=== PATIENT | male | born 1945 | race Caucasian/White ===

== ENCOUNTER 2016-10-12 21:25 | Inpatient (IN) ==
[2016-10-13] MEDS ORDERED: Albuterol 2.5 MG/3 ML NEBULIZER IH PRN (04:39)
[2016-10-13] MEDS ORDERED: *HR* Enoxaparin 80 MG/0.8 ML SYRINGE SQ SCH (05:00)
[2016-10-13] MEDS: Ipratropium/Albuterol Neb 3 ML IH SCH ×4 (05:25→22:43)
[2016-10-13] MEDS ORDERED: Naloxone 0.4 MG/ML INJ IVP PRN (05:28)
[2016-10-13] MEDS ORDERED: Acetaminophen 325 MG TABLET PO PRN (05:28)
[2016-10-13] MEDS ORDERED: *HR* Morphine 2 MG/ML SYRINGE IVP PRN (05:55)
[2016-10-13 06:19] LABS: Basophils % 0.1 %; Hematocrit 37.9 % (37.5-50.1); Hemoglobin 12.8 g/dL (12.9-16.9); Immature Granulocytes % 0.6 % (0-4); Lymphocytes # 0.7 K/mcL (0.6-4.6); Lymphocytes % 4.4 %; Mean Corpuscular HGB Conc 33.8 g/dL (31.6-35.5); Mean Corpuscular Hemoglobin 30.5 pg (28.0-33.3); Mean Corpuscular Volume 90.2 fL (83.0-100.0); Mean Platelet Volume 10.9 fL (9.4-12.4); Monocytes % 6.4 %; Platelet Count 206 K/mcL (140-400); Red Cell Distribution Width 13.7 % (11.5-14.5); Segmented Neutrophils % 88.5 %
[2016-10-13 06:35] LABS: BUN/Creatinine Ratio 28 (6-26); Blood Urea Nitrogen 23 mg/dL (8-26); Calcium 9.4 mg/dL (8.6-10.8); Carbon Dioxide 26 mEq/L (19-29); Chloride 105 mEq/L (98-109); Glucose 108 mg/dL (70-99); Osmolality,Calculated 294 (280-300); Sodium 140 mEq/L (136-145); eGFR For African Americans > 60 (> 60); eGFR For Non-African Americans > 60 (> 60)
[2016-10-13 06:36] LABS: Chol/HDL Ratio 3.4 (0-4.9)
[2016-10-13] MEDS: Aspirin 81 MG TAB.CHEW PO SCH (08:37)
[2016-10-13] MEDS: GuaiFENesin Liq 200 MG/10 ML UDC PO SCH ×2 (08:37→20:22)
[2016-10-13] MEDS ORDERED: Budesonide/Formoterol 160/4.5 MDI IH SCH (10:00)
--- NOTE | 2016-10-13 11:25 | Internal Med History&Physical ---
Date of Encounter: 10/13/16 Time of Encounter: 01:35 Assessment and Plan (1) Elevated troponin Status: Acute (2) Chest pain Status: Acute Atypical chest pain in the setting of reportedly elevated troponin will suggest NSTEMI. Trend troponin, serial EKG, 2D ECHO to evaluate LVEF and wma. Will need [facility] Consult cardiology. Loading dose of Lovenox. SL NG and IV Morphine prn for pain. Evaluate for cardiovascular risk factors. Continue other medications for chronic morbidities. Qualifiers: Chest pain type: unspecified Qualified Code(s): R07.9 - Chest pain, unspecified (3) HLD (hyperlipidemia) Status: Chronic Qualifiers: Hyperlipidemia type: unspecified Qualified Code(s): E78.5 - Hyperlipidemia , unspecified (4) CAD (coronary artery disease) Status: Chronic Qualifiers: Coronary Disease-Associated Artery/Lesion type: [place] artery Associated angina: with unspecified angina Qualified Code(s): I25.119 - Atherosclerotic heart disease of [place] coronary artery with unspecified angina pectoris (5) COPD (chronic obstructive pulmonary disease) Status: Chronic Qualifiers: COPD type: chronic bronchitis Chronic bronchitis type: unspecified Qualified Code(s): J42 - Unspecified chronic bronchitis Internal Medicine - H&P: HPI Chief complaint: chest pain History of present illness: Mr. Suarez is a 71 year old male with medical history significant for HLD, CAD s /p PCI with drug eluting stents, COPD (with nocturnal need for oxygen), former smoker was sent in by the [facility] for evaluation chest pain. The patient had been on admission at the [facility], admitted and treated for COPD exacerbation, but developed chest pain on Wednesday while at rest. Chest pain was sharp, left-sided and radiated to his left shoulder,arm and to the back. The pain lasted a few minutes. No associated nausea, vomiting, dizziness or diaphoresis. EKG done at the [facility] did not demonstrate acute changes, however, troponin trended up from 0.36 to 0.55. CTA done to evaluate for pulmonary embolism was negative. He has no chest pain now. He reports he had stress test in 2016 that he reports was non-ischemic. He said at that time medical management was recommended. He reports Simvastatin allergy. A 10-point review of system was performed. Positives and relevant negatives are detailed above. System-symptoms not mentioned assumed negative unless otherwise stated. He is FULL CODE as per discussion. Past Med Surg Social Fam HX - Past Medical History Medical history: COPD, coronary artery disease, GERD, hyperlipidemia Psychiatric history: anxiety - Social History Smoking Status: Former smoker Smokeless Tobacco Status: No Alcohol use: none Drug use: none - Family History Daughter Adopted: [place]: Jenni Camejo Age: 43 Family Member Ethnicity: Non- Living Status: Still Living Hx Family Cardiac Disorders: No Hx Family Respiratory Disorders: No Hx Family Cancer: No Hx Family GI Disorders: No Hx Family Genitourinary Disorders: No Hx Family Endocrine Disorder: No Hx Family Musculoskeletal Disorders: No Hx Family Neuromuscular Disorders: No Hx Family Neurologic Disorders: No Hx Family HEENT Disorders: No Hx Family Autoimmune Disorders: No Hx Family Reproductive Disorders: No Hx Family Psychosocial Disorders: No Hx Family Medical Disorders: No Internal Medicine - H&P: Meds Albuterol Neb [Proventil Neb] 2.5 mg IH TID PRN #0 11/29/15 [History] Albuterol Sulfate [Albuterol Inhaler] 2 puff IH Q4H PRN 11/29/15 [History] Aspirin 81 mg PO DAILY tab.chew 11/29/15 [Rx] Budesonide/Formoterol 160/4.5 [Symbicort 160/4.5] 2 puff IH BID 11/29/15 [ History] Guaifenesin 400 mg PO Q12H 11/29/15 [History] Montelukast [Singulair] 10 mg PO DAILY #0 11/29/15 [History] Tiotropium [Spiriva] 1 cap IH DAILY 11/29/15 [History] Methocarbamol [Robaxin] 500 mg PO QID PRN 10/13/16 [History] Naproxen [Naprosyn] 500 mg PO BID PRN 10/13/16 [History] Pravastatin Sodium [Pravachol] 40 mg PO DAILY 10/13/16 [History] Clopidogrel Bisulfate [Plavix] 75 mg PO DAILY #30 tablet 10/14/16 [Rx] Clopidogrel [Plavix] 75 mg PO DAILY tablet 10/14/16 [Rx] Metoprolol [Lopressor] 12.5 mg PO BID #60 tablet 10/14/16 [Rx] Omeprazole [PriLOSEC] 40 mg PO DAILY #30 loulou. 02/01/17 [Rx] PredniSONE 10 mg PO DAILY #12 tablet 10/14/16 [Rx] Allergies simvastatin Allergy (Verified 11/28/15 20:44) See Comments All Systems PM: A 10-system review of systems was performed and is negative for pertinent findings except as documented above in the HPI. - Constitutional Constitutional: as per HPI - EENT Eyes: as per HPI Ears: as per HPI - Breasts Breasts: as per HPI - Cardiovascular Cardiovascular ROS IM: as per HPI - Respiratory Respiratory: as per HPI - Gastrointestinal Gastrointestinal: as per HPI - Genitourinary Genitourinary ROS male: as per HPI - Musculoskeletal Musculoskeletal ROS IM: as per HPI - Integumentary Integumentary IM: as per HPI - Neurological Neurological ROS: as per HPI - Psychiatric Psychiatric: as per HPI - Endocrine Endocrine IM: as per HPI - Hematologic/Lymphatic Hematologic/Lymphatic: as per HPI - Allergic/Immunologic Allergic/Immunologic: as per HPI - Constitutional Vitals: Temp Pulse Resp BP Pulse Ox 97.7 F 66 16 140/80 96 10/13/16 10:56 10/13/16 10:56 10/13/16 10:56 10/13/16 10:56 10/13/16 10:56 General appearance: Present: pleasant, no acute distress, answers questions appropriately - Head Head exam: Present: atraumatic - Eye Eye exam: Present: EOMI, PERRL, conjuntiva pink. Absent: nystagmus, scleral icterus Pupils: Present: PERRL - Neck Neck exam general surgery: Present: full ROM, normal inspection, supple, trachea midline. Absent: lymphadenopathy, thyromegaly - Respiratory Respiratory exam: Present: CTAB. Absent: chest wall tenderness Additional comments: somewhat diminished. - Cardiovascular Cardiovascular exam: Present: RRR, +S1, +S2. Absent: JVD, systolic murmur - GI/Abdominal GI/Abdominal exam: Present: soft. Absent: distended, hepatomegaly, mass, rebound, splenomegaly, tenderness, no peritoneal signs - Rectal Rectal exam: Present: deferred - Additional comments: No flank tenderness, no CVA tenderness, no suprapubic tenderness. - Extremities Exam Additional comments: trace pedal edema. - Neurological Exam Neurological exam: Present: oriented X3, no focal deficits - Psychiatric Additional comments: mood id good affect is congruent, speech is normal, thought process is logical and goal-directed. - Skin Additional comments: no active skin lesions. Internal Med - H&P Results - Labs CBC & Chem 7: 10/13/16 06:09 10/13/16 06:09 Labs: Short CBC 10/13/16 Range/Units 06:09 WBC 15.8 H (4.3-11.1) K/mcL Hgb 12.8 L (12.9-16.9) g/dL Hct 37.9 (37.5-50.1) % Plt Count 206 (140-400) K/mcL Neutrophils # 14.0 H (1.6-8.9) K/mcL BMP 10/13/16 06:09 Sodium 140 Potassium 4.0 Chloride 105 Carbon Dioxide 26 BUN 23 Creatinine 0.81 Glucose 108 H Calcium 9.4 Cardiac Enzymes 10/13/16 Range/Units 06:09 Troponin I 0.02 (0-0.03) ng/mL - EKG Data -: EKG Interpreted by Myself EKG shows normal: sinus rhythm Rate: normal - EKG Data no acute changes Rhythm: NSR [place]/QRS: normal - EKG Data Prior EKG available for review: no
--- NOTE | 2016-10-13 13:42 | Cardiology Consult Note ---
Date of Encounter: 10/13/16 Time of Encounter: 13:42 Assessment and Plan (1) Unstable angina Current Visit: Yes Status: Acute - patient presents with 2 episodes of sharp left sided chest pain 5 minutes in duration with radiation to the left shoulder and into the back, occurred while at rest since Wednesday - chest pain is different from prior angina which was sharp in the back with radiation anteriorly through the chest - history of HLD, former smoker 2012, and known CAD with RIGO - history of RIGO placed 11/12/2014 currently only on ASA 81 - stress test performed 11/29/15 revealed moderate sized fixed perfusion consistent with artifact without signs of ischemia or infarct - Trop at the [facility] trended 0.036 --> 0.055 --> 0.53 on Thursday 10/12 but trop negative x2 here - EKG is sinus rhythm without acute signs of ischemia - will schedule for heart catheterization today with Dr. Khalil - another stress test would ultimately not affect management and be of no value at this time (2) CAD (coronary artery disease) Current Visit: No Status: Chronic - history of CAD with RIGO performed 11/12/2014 - former smoker, quit 2012 Qualifiers: Coronary Disease-Associated Artery/Lesion type: [place] artery Associated angina: with unspecified angina Qualified Code(s): I25.119 - Atherosclerotic heart disease of [place] coronary artery with unspecified angina pectoris Discussion w patient/family: The assessment and plan as outlined above was discussed with the patient and/or family members who expressed understanding and agreement. All questions were answered. Thank you for involving us in the care of your patient. Please call with any questions. History of Present Illness Consult date: 10/13/16 Requesting physician: Saman Nicholson Consult reason: Elevated Trop Chief complaint: CP History of present illness: Mr. Suarez is a 71 year old male with past medical history of CAD with RIGO 2014 , HLD, COPD 2L O2 supplementation at nighttime, and former smoker (quit 2012) presented to [facility] on Wednesday for several days of dyspnea and cough. He was admitted to [facility] for COPD exacerbation and treated with antibiotics and breathing treatments. On Wednesday at rest in bed patient experienced an episode of sharp left sided chest pain that radiated to the left shoulder and into the back that lasted for 5 minutes. Denies any diaphoresis, nausea, vomiting, or lightheadedness. The physician preceded to get an EKG that did not demonstrate any acute ischemic findings however troponins were elevated and peaked at 0.055. CTA to rule out PE was reportedly negative. Patient was then transferred here to [facility] for further management. EKG at admission here was reviewed and did not reveal any acute ischemic changes. Troponins have been negative x2. No reported episodes of chest pain. Patient remains NPO. 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 Notable CV testing: - Stress 11/29/15 revealed EF > 70% and moderate size fixed perfusion consistent with artifact but no ischemia or infarct - reported placement of RIGO in 11/12/2014 at [facility] Social Fam HX - Past Medical History Medical history: COPD, coronary artery disease, GERD, hyperlipidemia Psychiatric history: anxiety - Social History Smoking Status: Former smoker Smokeless Tobacco Status: No Alcohol use: none Drug use: none - Family History Daughter Adopted: [place]: Jenni Camejo Age: 43 Family Member Ethnicity: Non- Living Status: Still Living Hx Family Cardiac Disorders: No Hx Family Respiratory Disorders: No Hx Family Cancer: No Hx Family GI Disorders: No Hx Family Genitourinary Disorders: No Hx Family Endocrine Disorder: No Hx Family Musculoskeletal Disorders: No Hx Family Neuromuscular Disorders: No Hx Family Neurologic Disorders: No Hx Family HEENT Disorders: No Hx Family Autoimmune Disorders: No Hx Family Reproductive Disorders: No Hx Family Psychosocial Disorders: No Hx Family Medical Disorders: No Medications and Allergies Albuterol Neb [Proventil Neb] 2.5 mg IH TID PRN #0 11/29/15 [History] Albuterol Sulfate [Albuterol Inhaler] 2 puff IH Q4H PRN 11/29/15 [History] Aspirin 81 mg PO DAILY tab.chew 11/29/15 [Rx] Budesonide/Formoterol 160/4.5 [Symbicort 160/4.5] 2 puff IH BID 11/29/15 [ History] Guaifenesin 400 mg PO Q12H 11/29/15 [History] Montelukast [Singulair] 10 mg PO DAILY #0 11/29/15 [History] Tiotropium [Spiriva] 1 cap IH DAILY 11/29/15 [History] Methocarbamol [Robaxin] 500 mg PO QID PRN 10/13/16 [History] Naproxen [Naprosyn] 500 mg PO BID PRN 10/13/16 [History] Omeprazole [PriLOSEC] 20 mg PO BID 10/13/16 [History] Pravastatin Sodium [Pravachol] 40 mg PO DAILY 10/13/16 [History] Allergies simvastatin Allergy (Verified 11/28/15 20:44) See Comments All Systems Review: A 10-system review of systems was performed and is negative for pertinent findings except as documented above in the HPI. - Constitutional Constitutional: no fever(s), no headache(s) - Cardiovascular Cardiovascular: chest pain at rest, dyspnea at rest (COPD), lightheadedness, no claudication, no diaphoresis, no radiating jaw, neck or arm pain, no palpitations, no syncope - Respiratory Respiratory: cough, dyspnea, wheezing - Gastrointestinal Gastrointestinal: no abdominal pain, no nausea - Genitourinary Genitourinary: no dysuria, no hematuria Physical Examination Vital Signs, Last 4 Hours Temp Pulse Resp BP Pulse Ox 10/13/16 11:30 20 94 L 10/13/16 10:56 97.7 F 66 16 140/80 96 General: Conversant, No Apparent Distress HEENT: Atraumatic, Normocephaly, Mucus Membranes Moist Neck: No JVD, Normal carotid pulses Cardiac: Reg Rate and Rhythm, Normal S1 and S2, No Murmur Lungs: Normal Breath Sounds, Other (Mild expiratory wheezes) Neuro: Alert and responsive, No focal deficits noted Abdomen: Soft, Non-Tender Skin: No rashes noted on visualized skin Musculoskeletal: No Chest Wall Tenderness Extremities: No Clubbing, No Cyanosis, No Edema, Normal Pulses Results 10/13/16 06:09 10/13/16 06:09 Lab Results 10/13/16 10/13/16 10/13/16 06:09 06:09 06:09 WBC 15.8 H Hgb 12.8 L Hct 37.9 Plt Count 206 Sodium 140 Potassium 4.0 Chloride 105 Carbon Dioxide 26 BUN 23 Creatinine 0.81 Glucose 108 H Calcium 9.4 Troponin I 0.02 10/13/16 12:36 WBC Hgb Hct Plt Count Sodium Potassium Chloride Carbon Dioxide BUN Creatinine Glucose Calcium Troponin I 0.02 - Imaging and Cardiology Stress Test: report reviewed - EKG Interpretation EKG results cardiology: personally reviewed, normal ECG, sinus rhythm, no diagnostic ischemia Consult Discharge Plan - Plan [facility]errals: [facility] [Primary Care Provider] -
--- NOTE | 2016-10-13 14:21 | Internal Med Progress Note ---
Date of Encounter: 10/13/16 Time of Encounter: 14:19 - Assessment and plan (1) Chest pain Current Visit: No Status: Acute Assessment and plan: pressure like. possible unstable angina Hx of CAD Cardiology consulted/ Might be needing to be catheterized ASA, Plavix, metoprolol, Lovenox full dose NPO Qualifiers: Chest pain type: other chest pain Qualified Code(s): R07.89 - Other chest pain; R07.8 - Other chest pain (2) CAD (coronary artery disease) Current Visit: No Status: Chronic Assessment and plan: high risk for ACS Qualifiers: Coronary Disease-Associated Artery/Lesion type: [place] artery Associated angina: with unspecified angina Qualified Code(s): I25.119 - Atherosclerotic heart disease of [place] coronary artery with unspecified angina pectoris (3) COPD (chronic obstructive pulmonary disease) Current Visit: No Status: Chronic Assessment and plan: acute copd [id number] due to acute viral bronchitis Prednisone taper \consider Rocephin duonebs Qualifiers: COPD type: chronic bronchitis Chronic bronchitis type: unspecified Qualified Code(s): J42 - Unspecified chronic bronchitis (4) HLD (hyperlipidemia) Current Visit: Yes Status: Acute Qualifiers: Hyperlipidemia type: unspecified Qualified Code(s): E78.5 - Hyperlipidemia , unspecified - Subjective Interval history: had CP pressure like rad to the left chest, feels SOB, no abdominal pain , no fever , no dysuria, feels weak. Trop was 0.05 at the [facility] - Constitutional Vitals: Temp Pulse Resp BP Pulse Ox 97.7 F 66 20 140/80 94 L 10/13/16 10:56 10/13/16 10:56 10/13/16 11:30 10/13/16 10:56 10/13/16 11:30 General appearance: Present: A&O X 3 - Head Head exam: Present: atraumatic, normocephalic - Eye Eye exam: Present: PERRL, conjuntiva pink, sclera anicteric Pupils: Present: PERRL - Neck Neck exam general surgery: Present: supple, trachea midline. Absent: lymphadenopathy - Respiratory Respiratory exam: Present: CTAB, wheezes (minimal diffuse wheezing). Absent: accessory muscle use, rales, rhonchi - Cardiovascular Cardiovascular exam: Present: RRR, +S1, +S2. Absent: diastolic murmur, gallop, rubs, systolic murmur - GI/Abdominal GI/Abdominal exam: Present: normal bowel sounds, soft, no peritoneal signs. Absent: distended, tenderness - Extremities Exam Extremities exam: Present: warm, radial pulses palpable and symetrical. Absent : calf tenderness, cyanotic, pedal edema - Neurological Exam Neurological exam: Present: CN II-XII intact, oriented X3, no focal deficits. Absent: pronater drift, facial droop, speech deficit - Skin Skin exam: Present: dry, intact Internal Medicine: Result - Labs CBC & Chem 7: 10/13/16 06:09 10/13/16 06:09 Labs: Short CBC 10/13/16 Range/Units 06:09 WBC 15.8 H (4.3-11.1) K/mcL Hgb 12.8 L (12.9-16.9) g/dL Hct 37.9 (37.5-50.1) % Plt Count 206 (140-400) K/mcL Neutrophils # 14.0 H (1.6-8.9) K/mcL BMP 10/13/16 06:09 Sodium 140 Potassium 4.0 Chloride 105 Carbon Dioxide 26 BUN 23 Creatinine 0.81 Glucose 108 H Calcium 9.4 Cardiac Enzymes 10/13/16 10/13/16 Range/Units 06:09 12:36 Troponin I 0.02 0.02 (0-0.03) ng/mL Consult Discharge Plan - Plan [facility]errals: [facility] [Primary Care Provider] -
[2016-10-13] MEDS ORDERED: Nitroglycerin 0.4 MG TAB.SUBL SL PRN (14:23)
[2016-10-13] MEDS ORDERED: Heparin 1,000 UNITS/500 mL NS 500 ML ONE (14:29)
[2016-10-13] MEDS ORDERED: *HR* Heparin 10,000 UNIT/10 ML VIAL ONE (14:29)
[2016-10-13] MEDS ORDERED: 0.9 % Sodium Chloride 1,000 ML ONE ×2 (14:29→14:30)
--- NOTE | 2016-10-13 14:33 | Pre-Sedation Evaluation ---
Pre-sedation evaluation - Pre-sedation checklist Date of procedure: 10/13/16 Procedure: [facility] Recent Vitals: Last Vital Signs Temp 97.7 F 10/13/16 10:56 Pulse 66 10/13/16 10:56 Resp 20 10/13/16 11:30 BP 140/80 10/13/16 10:56 Pulse Ox 94 L 10/13/16 11:30 H&P (including ROS) documented in medical record: Yes Previous reaction to sedatives/anesthetics: No Dietary Status: NPO after Midnight Airway Assessment: Patient can open mouth completely, TMJ function normal, Micrognathia (under-bite, receding chin) absent, Neck with adequate range of motion Dentition: No loose teeth or bridges Possible difficult airway: No ASA Classification *see protocol: CLASS II-Mild systemic disease Plan of Care: Pt appropriate candidate for procedure/moderate/conscious sedation , Risks/benefits of procedure/sedation discussed w/ patient/family
[2016-10-13] MEDS: predniSONE 20 MG TABLET PO SCH (14:38)
[2016-10-13] MEDS ORDERED: Nitroglycerin 1,000 MCG/10 ML VIAL IV ONE (14:42)
[2016-10-13] MEDS ORDERED: *HR* FentaNYL (PF) 100 MCG/2 ML VIAL ONE (14:42)
[2016-10-13] MEDS ORDERED: *HR* Midazolam HCl 2 MG/2 ML VIAL ONE (14:42)
[2016-10-13 14:58] LABS: INR 1.2; Prothrombin Time 12.6 Seconds (9.4-12.1)
[2016-10-13 15:01] LABS: Activated Partial Thrombo Time 30.4 Seconds (26.0-36.0)
--- NOTE | 2016-10-13 15:40 | Event Note ---
Date of Encounter: 10/13/16 Time of Encounter: 15:38 - Cardiology Event Note LHC showed minimal CAD, patent RCA stent. Continue medical management and risk factor modification. R/o non-cardiac cause of chest pain. F/u with cardiology in 2 weeks.
--- NOTE | 2016-10-13 15:46 | Invasive Diagnostic Lab Proc ---
Name: Abhay Suarez Date of Study: 10/13/2016 Date: 1945 Ht: 64.2in Medical Record#: [id number] Age: 71 Wt: 171.96lb Gender: Male BSA: 1.84 Order #: [id number] BMI: 29.36 Physicians Procedure Physician: Loren Khalil MD, [facility] Referring MD: Referring MD: Staff Name Position Time In Denise Black RT (R) Monitor 03:06 PM Malena Laila RT Scrub 03:06 PM Lakeisha Muñiz RN Gallery Assistant 03:06 PM Edita Greenfield RN Gallery Assistant 03:26 PM Indications Indication Unstable Angina Procedures Performed Procedure L HRT ARTERY/VENTRICLE ANGIO Pre-Procedure Checklist Informed consent is complete signed and on chart. H\\T\\P is on chart. ID band is on and ID verified with patient. Patient NPO for procedure The procedure was described for the patient and questions were answered. Blood Pressure: 144/85 ECG is on chart. Rhythm: NSR Plan of Care Patient will tolerate the procedure without complications. Adequate level of comfort will be maintained. Hemodynamics will remain stable Patient will recover from procedure without complications. Respiratory function will be maintained. Cardiac rhythm will remain stable. Patient temperature will be maintained. Patient and/or family have verbalized understanding of the procedure. Patient Education Chief Complaint/Reason for Test: Cardiac Cath Developmental Category: Geriatric (65+ years) Developmentally Appropriate for Age: Yes Learning Barriers: None Education Needs: Procedure Education Method: Verbal Information Taught: Cardiac Cath Educational Evaluation: Able to repeat information Intravenous Access Time IV Size Location DC'd Fluid/Drip Rate Units RN 03:09 PM 20g 1 1/4" Peripheral-Lock On Arrival Lt Antecubital 0.9NaCl 25 ml/hr Allergies simvastatin Vital Signs Time BP (mmHg) HR (bpm) O2 Sat. RR (bpm) LOC 03:09 PM 144 / 85 63 94 % 21 5 = Fully awake and oriented or at pre-proc level 03:07 PM / % 4 = Oriented but drowsy 03:07 PM / % 4 = Oriented but drowsy 03:06 PM 144 / 85 64 95 % 20 03:11 PM 114 / 76 60 92 % 16 03:16 PM 115 / 67 57 93 % 15 03:21 PM 115 / 68 66 93 % 33 Procedural Medications Time Medication Dose Units Method Given By 03:07 PM Oxygen 2 L/min nasal cannula Lakeisha Muñiz RN 03:07 PM Versed 2 mg Intravenous Lakeisha Muñiz RN 03:07 PM Fentanyl 50 mcg Intravenous Lakeisha Muñiz RN 03:13 PM Lidocaine 2% 12 ml Subcutaneous Loren Khalil MD, FACC 03:18 PM Nitroglycerin 200 mcg Intracoronary Loren Khalil MD, FACC 03:19 PM Oxygen 4 L/min nasal cannula Lakeisha Muñiz RN Itz Score Preprocedure Postprocedure Activity 2- Moves 4 extremities sustained head lift Activity 2- Moves 4 extremities sustained head lift Circulation 2- SBP +/= 20 points of pre-anesthetic level Circulation 2- SBP +/= 20 points of pre-anesthetic level Consciousness 2- Awake and alert oriented x 3 Consciousness 2- Awake and alert oriented x 3 O2 Saturation 2- Able to maintain O2 satruation of 92% on room air O2 Saturation 2- Able to maintain O2 satruation of 92% on room air Respiratory 2- Able to deep breathe and cough well Respiratory 2- Able to deep breathe and cough well Total Score 10 Total Score 10 Contrast Agent: Isovue Diagnostic Contrast: 50 ml Total Contrast: 50 ml Fluoro Dose: 105 mGy Procedure Log Time Note Enter By 03:06 PM CathStat 03:06 PM Vitals capture started with the following parameters, Patient=Adult, Interval=5 min, Initial Axjrhfnd=454 mmHg, Deflation Rate=5 mmHg 03:06 PM 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 Bilateral groin prepped with Chloraprep by Denise Black (R) then patient draped. Skin intact. [email or web address] 03:07 PM Physician arrived 15:07 [email or web address] 03:07 PM Meet and carole completed [email or web address] 03:07 PM Sign in performed according to hospital policy. [email or web address] 03:07 PM Procedure start 15:07 [email or web address] 03:07 PM Time: 15:07 Oxygen on at 2 L/min per nasal cannula by Lakeisha Muñiz RN [email or web address] 03:07 PM Time: 15:07 Versed 2 mg Intravenous Given by Lakeisha Muñiz RN 03:07 PM Time: 15:07 Fentanyl 50 mcg Intravenous Given by Lakeisha Muñiz RN 03:07 PM Time: 15:07 Patient comfortable and pain free: Yes [email or web address] 03:07 PM Time: 15:07LOC: 4 = Oriented but drowsy [email or web address] 03:09 PM Pressure channel 1 zeroed. 03:11 PM HR=60 bpm, TYJG=225/76 mmhg, SpO2=92.0 %, Resp=16 B/min, Comment=NSR 03:13 PM Time out performed according to hospital policy [email or web address] 03:13 PM Clinical Presentation: Unstable angina [email or web address] 03:14 PM Time: 15:13 12 ml Lidocaine 2% to right groin Subcutaneous Given by Loren Khalil MD, [facility] [email or web address] 03:14 PM Access obtained by percutaneous puncture. 5Fr 10cm Terumo [place] sheath placed in right Femoral artery. [id number] [email or web address] 03:15 PM 5Fr FL 4 catheter inserted over the wire [facility] [email or web address] 03:15 PM 0.035 145cm Navilyst 3mmJ wire [id number] [email or web address] 03:15 PM LCA angiography performed in multiple views. [email or web address] 03:16 PM Recorded Pressure: Ao, HR=55, Condition=Condition 1 (Aorta) Ao 106/67/86 03:16 PM HR=57 bpm, UNLU=076/67 mmhg, SpO2=93.0 %, Resp=15 B/min, Comment=NSR 03:17 PM Catheter removed [email or web address] 03:17 PM 5Fr FR 4 catheter inserted over the wire [facility] [email or web address] 03:18 PM RCA angiography performed in multiple views. [email or web address] 03:18 PM Recorded Pressure: Ao, HR=61, Condition=Condition 1 (Aorta) Ao 108/71/90 03:18 PM Time: 15:18 Nitroglycerin 200 mcg Intracoronary Given by Loren Khalil MD, [facility] [email or web address] 03:18 PM Recorded Pressure: Ao, HR=64, Condition=Condition 1 (Aorta) Ao 95/53/71 03:19 PM Time: 15:19 Oxygen on at 4 L/min per nasal cannula by Lakeisha Muñiz RN [email or web address] 03:19 PM Catheter removed [email or web address] 03:20 PM 5Fr Pigtail catheter inserted over the wire [facility] [email or web address] 03:20 PM Catheter selectively placed in left ventricle [email or web address] 03:20 PM Bolus angiogram of right Ventricle complete: 8 ml/sec for a total of 24 mls [email or web address] 03:20 PM Pressure channel 1 zero failed. 03:20 PM Pressure channel 1 zeroed. 03:21 PM Recorded Pressure: LV, HR=55, Condition=Condition 1 (Left Ventricle) LV 75/17/25 03:21 PM Recorded Pressure: LV, HR=64, Condition=Condition 1 (Left Ventricle) LV 75/12/20 03:21 PM Recorded Pressure: LV, Ao, HR=76, Condition=Condition 1 (Left Ventricle) LV 102/92/46, (Aorta) Ao 78/6/55 03:21 PM HR=66 bpm, SUAI=763/68 mmhg, SpO2=93.0 %, Resp=33 B/min, Comment=NSR 03:21 PM Catheter removed [email or web address] 03:22 PM Bolus angiogram of right Femoral complete: 4 ml/sec for a total of 7 mls [email or web address] 03:22 PM Time: 15:07 Patient comfortable and pain free: Yes [email or web address] 03:22 PM Time: 15:07LOC: 4 = Oriented but drowsy [email or web address] 03:23 PM Procedure completed at 15:23 [email or web address] 03:23 PM Sign out completed: Radiation Dose 105.03 mGy Fluoro Time: 1.0 Isovue 370 - 200ml contrast 68.5 ml given by Loren Khalil MD, FACC. Complications: NoneCardiac Rehab Consult needed: NoConfirmed administered medications: Yes [email or web address] 03:23 PM Isovue 370 - 200ml,1 Bottle(s) used. [email or web address] 03:23 PM Arterial sheath pulled, Mynx closure device used and was Successful S/N. [email or web address] 03:23 PM Post ECG NSR [email or web address] 03:23 PM Post Blood Pressure 115/68 [email or web address] 03:24 PM 15:24 Post Pulses Bilateral DP \\T\\ PT 1+ [email or web address] 03:25 PM Information taught Cardiac Cath and Mynx [email or web address] 03:25 PM Education needs Procedure, Plan of Care, and Disease Process [email or web address] 03:25 PM Learning barriers :None [email or web address] 03:25 PM Education Methods Verbal [email or web address] 03:25 PM Education evaluation Able to repeat information [email or web address] 03:26 PM Edita Greenfield RN Position: Gallery Assistant Time in: 15:26 [email or web address] 03:26 PM Site status No bleeding/hematoma - Rt Groin as reported by Laila Guy RT at 15:26 [email or web address] 03:27 PM Opsite applied [email or web address] 03:27 PM Delay to floor No [email or web address] 03:27 PM Family placed in consult room. [email or web address] 03:27 PM Complications: None [email or web address] 03:27 PM Fluoro Time: 1 [email or web address] 03:29 PM Lesion found in Proximal RCA. Pre Stenosis: 20 Pre KIMBERLEY Flow: [email or web address] 03:34 PM Report given to Starla CAMPA Pt taken to 2A Room #35. 15:34 [email or web address] 03:34 PM Patient out of room: 15:34 [email or web address] Complications Complication None None Hemodynamics Pressures Site Systolic/A Wave Diastolic/V Wave Mean AO 106 67 86 AO 108 71 90 AO 95 53 71 LV 75 17 25 LV 75 12 20 LV 102 92 46 AO 78 6 55 Post Procedure Information Blood Pressure: 115/68 mmHg Rhythm: NSR Post procedural instructions were given Closure Device Time Device Success/Fail 10/13/2016 3:27:00 PM MynxGrip Successful Site Checks Time Location Status Staff Sheath In? Note 03:26 PM Rt Groin No bleeding/hematoma Laila Guy RT Pulses Time Site Pre-Procedure Post-Procedure Note 10/13/2016 3:09:00 PM Bilateral DP \\T\\ PT 1+ 1+ 3:24:00 PM Bilateral DP \\T\\ PT 1+ Updated by RT Mandeep(R) on 10/13/2016 3:39:20 PM electronically signed on 10/13/2016 3:40:28 PM with status of Final
--- NOTE | 2016-10-13 16:12 | Invasive Diagnostic Lab ---
Name: Abhay Suarez Date of Study: 10/13/2016 Date: 1945 Ht: 163.0 cm /64.2 in Medical Record#: [id number] Age: 71 Wt: 78. kg / 171.96 lb Account/Order#: [id number] Gender: Male BSA: 1.84 Order #: [id number] Fluoro Dose: 105 mGy BMI: 29.36 Procedure Physician: Loren Khalil MD, FACC Referring MD: Referring MD: Procedures Performed: LEFT HEART CATH Indications: Unstable Angina Impressions: Single vessel coronary artery disease. The left ventricle is normal and has normal contractility EF 60% Stent placed from a prior procedure in the Proximal RCA is patent. Recommendations: Optimal medical therapy of patient's disease. Aggressive risk factor modification. History/Risk Factors: COPD CAD GERD ANXIETY FORMER SMOKER UNSTABLE ANGINA. Dyslipidemia Procedure Access obtained in the right Femoral artery by percutaneous puncture Complications: None, None Contrast: Isovue 50ml Closure Device: MynxGrip Hemodynamics: Pressures Site Systolic/ A Wave Diastolic/ V Wave End Diastolic/ Mean HR AO 106 67 86 55 AO 108 71 90 61 AO 95 53 71 64 LV 75 17 25 55 LV 75 12 20 64 LV 102 92 46 125 AO 78 6 55 69 LV Ventriculography Ejection Method: LV Gram Ejection Fraction: 60% Wall Motion: CORDOVA Anterobasal Normal Anterolateral Normal Apical: Normal Inferoapical Normal Inferobasal Normal Coronary Dominance: Right Lesion Findings/Interventions * Left Main Coronary Artery The LMCA is angiographically free of disease. * Left Anterior Descending There is a 20% stenosis in the Proximal LAD. * Circumflex There is a 20% stenosis in the Proximal Circumflex. There is a 30% stenosis in the Mid Circumflex. * Ramus There is a 15% stenosis in the Ramus. * Right Coronary Artery There is a 20% in stent stenosis in the Proximal RCA. Updated by RT Mandeep(R) on 10/13/2016 3:37:06 PM Loren Khalil MD, FACC electronically signed on 10/13/2016 4:07:02 PM with status of Final
[2016-10-14] MEDS: Ipratropium/Albuterol Neb 3 ML IH SCH ×2 (04:54→10:51)
[2016-10-14 07:14] VITALS: BP 137/83
--- NOTE | 2016-10-14 08:36 | Discharge Summary ---
Date of Encounter: 10/14/16 Time of Encounter: 08:30 - Discharge Diagnosis (1) Chest pain Priority: Primary Status: Acute Comments: Ruled out acute coronary syndrome/unstable angina Qualifiers: Chest pain type: other chest pain Qualified Code(s): R07.89 - Other chest pain; R07.8 - Other chest pain (2) CAD (coronary artery disease) Priority: Secondary Status: Chronic Qualifiers: Coronary Disease-Associated Artery/Lesion type: [place] artery Associated angina: with unspecified angina Qualified Code(s): I25.119 - Atherosclerotic heart disease of [place] coronary artery with unspecified angina pectoris (3) COPD (chronic obstructive pulmonary disease) Priority: Secondary Status: Chronic Comments: acute copd exacerbation due to acute viral bronchitis Qualifiers: COPD type: chronic bronchitis Chronic bronchitis type: unspecified Qualified Code(s): J42 - Unspecified chronic bronchitis (4) HLD (hyperlipidemia) Priority: Secondary Status: Acute Qualifiers: Hyperlipidemia type: unspecified Qualified Code(s): E78.5 - Hyperlipidemia , unspecified - Discharge Medications Prescriptions: Metoprolol [Lopressor] 12.5 mg PO BID #60 tablet Omeprazole [PriLOSEC] 40 mg PO DAILY #30 capsule. PredniSONE 10 mg PO DAILY #12 tablet Home Medications: Albuterol Neb [Proventil Neb] 2.5 mg IH TID PRN #0 11/29/15 [History] Albuterol Sulfate [Albuterol Inhaler] 2 puff IH Q4H PRN 11/29/15 [History] Aspirin 81 mg PO DAILY tab.chew 11/29/15 [Rx] Budesonide/Formoterol 160/4.5 [Symbicort 160/4.5] 2 puff IH BID 11/29/15 [ History] Guaifenesin 400 mg PO Q12H 11/29/15 [History] Montelukast [Singulair] 10 mg PO DAILY #0 11/29/15 [History] Tiotropium [Spiriva] 1 cap IH DAILY 11/29/15 [History] Methocarbamol [Robaxin] 500 mg PO QID PRN 10/13/16 [History] Naproxen [Naprosyn] 500 mg PO BID PRN 10/13/16 [History] Pravastatin Sodium [Pravachol] 40 mg PO DAILY 10/13/16 [History] Clopidogrel [Plavix] 75 mg PO DAILY tablet 10/14/16 [Rx] Metoprolol [Lopressor] 12.5 mg PO BID #60 tablet 10/14/16 [Rx] Omeprazole [PriLOSEC] 40 mg PO DAILY #30 capsule. 10/14/16 [Rx] PredniSONE 10 mg PO DAILY #12 tablet 10/14/16 [Rx] Allergies/Adverse Reactions: Allergies simvastatin Allergy (Verified 11/28/15 20:44) See Comments Procedures/tests Complete & Pending: Procedures Performed prior 72 hours Category Date Time Status CL Cardiac Catheterization [CL] Routine Director Erp 10/13/16 14:25 Completed Date of admission: 10/12/16 22:55 Primary care physician: PCP ALBERTA Consults: 10/13/16 04:36 Consult to Cardiology [CONS] Routine Comment: Consulting Provider: Cardiology Sravanthi Reason for Consult: NSTEMI Call Completed: Yes - Patient Status Disposition: Home, Self-Care Condition: Good Overall status at discharge: patient is back to baseline - Discharge Instructions [facility] Up With: [facility]Primary Care Provider[facility] - Additional Instructions: Follow with primary care physician within the next 7 days. Continue prednisone taper, continue aspirin and Plavix. Follow with cardiology in 2 weeks - Diet and Activity Activity: increase activity as tolerated Diet: low fat, low cholesterol Hospital course: Mr. Suarez is a 71 year old male past medical history of CAD with RIGO 2015, HLD , COPD 2L O2 supplementation at nighttime, and former smoker (quit 2012) presented to [facility] on Wednesday for several days of dyspnea and cough. He was admitted to [place] for COPD exacerbation and treated with antibiotics and breathing treatments. On Wednesday at rest in bed patient experienced an episode of sharp left sided chest pain that radiated to the left shoulder and into the back that lasted for 5 minutes. Denies any diaphoresis, nausea, vomiting, or lightheadedness. The physician preceded to get an EKG that did not demonstrate any acute ischemic findings however troponins were elevated and peaked at 0.055. CTA to rule out PE was reportedly negative. Patient was then transferred here to [facility] for further management. EKG at admission here was reviewed and did not reveal any acute ischemic changes. Troponins have been negative x2. No reported episodes of chest pain. Patient remains NPO. Dr. Reynolds is his personal driver. Notable CV testing: - Stress 11/29/15 revealed EF > 70% and moderate size fixed perfusion consistent with artifact but no ischemia or infarct - reported placement of RIGO in 11/12/2014 at [facility] The patient was evaluated by the personal driver service and a cardiac catheterization was performed as his symptoms were very typical. LHC showed minimal CAD, patent RCA stent. Continue medical management and risk factor modification. R/o non-cardiac cause of chest pain. At this point, it is thought that his pain could be related to his diagnosis of hiatal hernia. She will be discharged on a prednisone taper to continue treating his COPD exacerbation. F/u with cardiology in 2 weeks - Time Spent with Patient Total time spent providing and/or coordinating discharge services: Greater than 30 minutes (40 minutes) - Constitutional Vitals: Temp Pulse Resp BP Pulse Ox 97.3 F L 60 16 137/83 93 L 10/14/16 07:12 10/14/16 07:12 10/14/16 07:12 10/14/16 07:12 10/14/16 07:12 General appearance: Present: A&O X 3 - Head Head exam: Present: atraumatic, normocephalic - Eye Eye exam: Present: PERRL, conjuntiva pink, sclera anicteric Pupils: Present: PERRL - Neck Neck exam general surgery: Present: supple, trachea midline. Absent: lymphadenopathy - Respiratory Respiratory exam: Present: CTAB. Absent: accessory muscle use, rales, rhonchi, wheezes - Cardiovascular Cardiovascular exam: Present: RRR, +S1, +S2. Absent: diastolic murmur, gallop, rubs, systolic murmur - GI/Abdominal GI/Abdominal exam: Present: normal bowel sounds, soft, no peritoneal signs. Absent: distended, tenderness - Extremities Exam Extremities exam: Present: warm, radial pulses palpable and symetrical. Absent : calf tenderness, cyanotic, pedal edema - Neurological Exam Neurological exam: Present: CN II-XII intact, oriented X3, no focal deficits. Absent: pronater drift, facial droop, speech deficit - Skin Skin exam: Present: dry, intact
[2016-10-14] MEDS: Aspirin 81 MG TAB.CHEW PO SCH (10:36)
[2016-10-14] MEDS: GuaiFENesin Liq 200 MG/10 ML UDC PO SCH (10:36)
[2016-10-14] MEDS: predniSONE 20 MG TABLET PO SCH (10:36)
--- NOTE | 2016-10-14 14:33 | Electrocardiograph Report ---
[place] [id number] Test Date: 2016-10-13 Pat Name: Abhay Suarez Department: 112 Room: 2A Gender: M Shellfish Sorter: : 1945 Requested By: Ruben Bravo Order Number: [id number] Reading MD: Camden Patel MD Measurements Intervals Mitchell Rate: 62 P: 21 MN: 141 QRS: 18 QRSD: 88 T: 10 QT: 425 QTc: 431 Interpretive Statements SINUS RHYTHM WITH SINUS ARRHYTHMIA Electronically Signed On 10-14-2016 13:52:48 EST by Camden Patel MD
== END 2016-10-14 11:08 | disposition home or self-care (01) | DRG 287 ==
LOC: 2ANU 22:55 → SUATTDRO 22:55
PROVIDERS: ADMIT Internal Medicine; ATTEND Internal Medicine

== ENCOUNTER 2022-01-06 19:45 | Inpatient (IN) ==
[2022-01-06] MEDS ORDERED: Albuterol 2.5 MG/3 ML NEBULIZER IH ONE (20:09)
[2022-01-06 20:19] LABS: VBG HCO3 23 mEq/L (21-27); VBG PCO2 35 mmHg (41-51); VBG PH 7.42 pH Units (7.32-7.42); VBG PO2 105 mmHg (25-50)
[2022-01-06 20:32] LABS: Bilirubin,Urine Negative (Negative); Blood,Urine Negative (Negative); Clarity,Urine Clear (Clear); Color,Urine Yellow (Yellow); Glucose,Urine (UA) Normal (Normal); Ketones,Urine 10 mg/dL (Negative); Leukocyte Esterase,Urine Negative (Negative); Nitrite,Urine Negative (Negative); PH,Urine 6.5 pH Units (5.0-8.0); Protein,Urine Negative (Neg-Trace); Specific Gravity,Urine 1.025 (1.010-1.025); Urobilinogen,Urine Normal (Normal)
[2022-01-06 20:37] LABS: Basophils % 0.2 %; Hemoglobin 14.1 g/dL (12.9-16.9); Immature Granulocytes % 0.7 % (0-4); Lymphocytes # 0.3 K/mcL (0.6-4.6); Mean Corpuscular HGB Conc 32.8 g/dL (31.6-35.5); Mean Corpuscular Hemoglobin 29.9 pg (28.0-33.3); Mean Corpuscular Volume 91.3 fL (83.0-100.0); Mean Platelet Volume 10.8 fL (9.4-12.4); Monocytes # 0.3 K/mcL (0.0-1.3); Monocytes % 1.7 %; Platelet Count 234 K/mcL (140-400); Red Blood Count 4.71 M/mcL (4.19-5.50); Red Cell Distribution Width 15.2 % (11.5-14.5); Segmented Neutrophils % 95.4 %; White Blood Count 16.8 K/mcL (4.3-11.1)
[2022-01-06 20:38] LABS: Alanine Aminotransferase 15 Units/L (7-52); Albumin 4.1 g/dL (3.5-5.7); Albumin/Globulin Ratio 1.6 (1.1-2.2); Alkaline Phosphatase 96 Units/L (34-104); Aspartate Amino Transferase 19 Units/L (13-39); BUN/Creatinine Ratio 20 (6-26); Bilirubin,Total 0.8 mg/dL (0.3-1.0); Blood Urea Nitrogen 19 mg/dL (8-23); Calcium 9.3 mg/dL (8.6-10.3); Carbon Dioxide 24 mEq/L (23-29); Chloride 102 mEq/L (98-107); Globulin 2.5 g/dL (2.4-3.5); Glucose 182 mg/dL (70-105); Osmolality,Calculated 289 (280-300); Potassium 4.1 mEq/L (3.5-5.1); Sodium 136 mEq/L (136-145); Total Protein 6.6 g/dL (6.4-8.9); eGFR For African Americans > 60 (> 60); eGFR For Non-African Americans > 60 (> 60)
[2022-01-06 20:39] LABS: Troponin I < 0.03 ng/mL (< 0.04)
[2022-01-06 21:07] LABS: Adenovirus Not Detected (Not Detect); Bordetella Pertussis Not Detected (Not Detect); Chlamydophila pneumoniae Not Detected (Not Detect); Coronavirus 229E Not Detected (Not Detect); Coronavirus HKU1 Not Detected (Not Detect); Coronavirus NL63 Not Detected (Not Detect); Coronavirus OC43 Not Detected (Not Detect); Human Metapneumovirus Not Detected (Not Detect); Human Rhinovirus/Enterovirus Not Detected (Not Detect); Influenza A Subtype 2009 H1 Not Detected (Not Detect); Influenza B Not Detected (Not Detect); Mycoplasma pneumoniae Not Detected (Not Detect); Parainfluenza Virus 1 Not Detected (Not Detect); Parainfluenza Virus 2 Not Detected (Not Detect); Parainfluenza Virus 3 Not Detected (Not Detect); Parainfluenza Virus 4 Not Detected (Not Detect); Respiratory Syncytial Virus Not Detected (Not Detect); SARS-CoV-2 Not Detected (Not Detect)
[2022-01-06] MEDS ORDERED: Vancomycin 1,500 MG/265 ML IV.SOLN IVPB ONE (22:25)
[2022-01-06] MEDS ORDERED: Piperacillin/Tazobactam 3.375 GM in 0.9 % Sodium Chloride Mini Bag 100 ML IVPB ONE (22:25)
[2022-01-07] MEDS ORDERED: Acetaminophen 325 MG TABLET PO PRN (00:25)
[2022-01-07] MEDS ORDERED: Ondansetron 4 MG/2 ML VIAL IVP PRN (00:25)
[2022-01-07] MEDS ORDERED: Melatonin 3 MG TABLET PO PRN (00:25)
[2022-01-07] MEDS ORDERED: Naloxone 0.4 MG/ML INJ IVP PRN (00:25)
[2022-01-07 01:56] LABS: Alanine Aminotransferase 13 Units/L (7-52); Albumin 3.7 g/dL (3.5-5.7); Albumin/Globulin Ratio 1.4 (1.1-2.2); Alkaline Phosphatase 80 Units/L (34-104); Aspartate Amino Transferase 16 Units/L (13-39); BUN/Creatinine Ratio 23 (6-26); Bilirubin,Total 0.7 mg/dL (0.3-1.0); Blood Urea Nitrogen 20 mg/dL (8-23); Calcium 9.1 mg/dL (8.6-10.3); Carbon Dioxide 22 mEq/L (23-29); Chloride 104 mEq/L (98-107); Globulin 2.6 g/dL (2.4-3.5); Glucose 230 mg/dL (70-105); Magnesium 1.8 mg/dL (1.6-2.6); Osmolality,Calculated 290 (280-300); Phosphorous 3.5 mg/dL (2.7-4.5); Potassium 4.2 mEq/L (3.5-5.1); Sodium 135 mEq/L (136-145); Total Protein 6.3 g/dL (6.4-8.9); eGFR For African Americans > 60 (> 60); eGFR For Non-African Americans > 60 (> 60)
[2022-01-07 02:04] LABS: Basophils % 0.1 %; Hemoglobin 13.4 g/dL (12.9-16.9); Immature Granulocytes % 0.5 % (0-4); Lymphocytes # 0.5 K/mcL (0.6-4.6); Lymphocytes % 3.1 %; Mean Corpuscular HGB Conc 32.7 g/dL (31.6-35.5); Mean Corpuscular Hemoglobin 29.8 pg (28.0-33.3); Mean Corpuscular Volume 91.3 fL (83.0-100.0); Mean Platelet Volume 10.8 fL (9.4-12.4); Monocytes # 0.2 K/mcL (0.0-1.3); Neutrophils # 14.9 K/mcL (1.6-8.9); Platelet Count 210 K/mcL (140-400); Red Blood Count 4.49 M/mcL (4.19-5.50); Red Cell Distribution Width 15.2 % (11.5-14.5); Segmented Neutrophils % 95.3 %; White Blood Count 15.7 K/mcL (4.3-11.1)
[2022-01-07] MEDS ORDERED: Albuterol 2.5 MG/3 ML NEBULIZER IH PRN (07:45)
[2022-01-07] MEDS: Aspirin 81 MG TAB.CHEW PO SCH (09:24)
[2022-01-07] MEDS: Piperacillin/Tazobactam 3.375 GM in 0.9 % Sodium Chloride Mini Bag 100 ML IVPB SCH ×2 (09:24→16:09)
[2022-01-07] MEDS: Budesonide/Formoterol 160/4.5 1 PUFF INH IH SCH ×2 (11:03→19:56)
[2022-01-07] MEDS: Tiotropium 10 INH DOSE IH SCH (11:03)
[2022-01-07] MEDS: *HR* Heparin 5,000 UNIT/ML VIAL SQ SCH (16:53)
[2022-01-08] MEDS: Piperacillin/Tazobactam 3.375 GM in 0.9 % Sodium Chloride Mini Bag 100 ML IVPB SCH ×3 (01:45→17:27)
[2022-01-08 03:54] LABS: Basophils % 0.2 %; Eosinophils % 0.2 %; Hematocrit 36.7 % (37.5-50.1); Hemoglobin 12.2 g/dL (12.9-16.9); Immature Granulocytes % 0.2 % (0-4); Lymphocytes # 1.2 K/mcL (0.6-4.6); Mean Corpuscular HGB Conc 33.2 g/dL (31.6-35.5); Mean Corpuscular Hemoglobin 30.4 pg (28.0-33.3); Mean Corpuscular Volume 91.5 fL (83.0-100.0); Mean Platelet Volume 11.3 fL (9.4-12.4); Monocytes # 0.6 K/mcL (0.0-1.3); Monocytes % 6.8 %; Neutrophils # 6.6 K/mcL (1.6-8.9); Platelet Count 208 K/mcL (140-400); Red Blood Count 4.01 M/mcL (4.19-5.50); Red Cell Distribution Width 15.3 % (11.5-14.5); Segmented Neutrophils % 78.6 %; White Blood Count 8.4 K/mcL (4.3-11.1)
[2022-01-08 04:02] LABS: BUN/Creatinine Ratio 27 (6-26); Blood Urea Nitrogen 23 mg/dL (8-23); Calcium 8.8 mg/dL (8.6-10.3); Carbon Dioxide 25 mEq/L (23-29); Chloride 107 mEq/L (98-107); Glucose 129 mg/dL (70-105); Osmolality,Calculated 291 (280-300); Phosphorous 2.7 mg/dL (2.7-4.5); Potassium 3.8 mEq/L (3.5-5.1); Sodium 138 mEq/L (136-145); eGFR For African Americans > 60 (> 60); eGFR For Non-African Americans > 60 (> 60)
[2022-01-08] MEDS: *HR* Heparin 5,000 UNIT/ML VIAL SQ SCH ×2 (05:28→17:27)
[2022-01-08] MEDS: Tiotropium 10 INH DOSE IH SCH (07:42)
[2022-01-08] MEDS: Budesonide/Formoterol 160/4.5 1 PUFF INH IH SCH ×2 (07:43→20:54)
[2022-01-08] MEDS: Aspirin 81 MG TAB.CHEW PO SCH (08:18)
[2022-01-08 08:52] LABS: Vancomycin,Trough 22 mcg/mL (5-10)
[2022-01-08 11:19] LABS: Estimated Average Glucose 105 mg/dl; Hemoglobin A1C 5.3 %
[2022-01-09] MEDS: Piperacillin/Tazobactam 3.375 GM in 0.9 % Sodium Chloride Mini Bag 100 ML IVPB SCH ×2 (00:29→08:57)
[2022-01-09] MEDS: *HR* Heparin 5,000 UNIT/ML VIAL SQ SCH (06:28)
[2022-01-09 06:52] VITALS: BP 135/64; PULSE 49; TEMP 97.6
[2022-01-09] MEDS: Tiotropium 10 INH DOSE IH SCH (07:42)
[2022-01-09] MEDS: Budesonide/Formoterol 160/4.5 1 PUFF INH IH SCH (07:42)
[2022-01-09] MEDS: Aspirin 81 MG TAB.CHEW PO SCH (09:01)
[2022-01-09 10:46] VITALS: O2SAT 95
== END 2022-01-09 10:25 | disposition home or self-care (01) | DRG 193 ==
LOC: 3BNU 19:45 → EMEROOARM 19:45 → SUATTDRO 23:20 → 3BNU 23:50
PROVIDERS: ADMIT Family Medicine; ATTEND Internal Medicine